=== PATIENT | male | born 1985 | race African-American/Black ===

== ENCOUNTER 2016-11-19 22:32 | Emergency (ER) | payer OTHER ==
[2016-11-19 22:38] VITALS: BP 117/62
--- NOTE | 2016-11-19 22:57 | EDM.PDOC ---
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 the pain I asked him if he had hit a bump and he said yes at this time I examined him patient also states 2 years ago he injured his back and the pain was similar to this Onset: Today Duration: Minutes:, Constant Location: Reports: Back, Lower Extremity, Left Quality: Reports: Throbbing Severity: Moderate Improves with: Reports: Immobilization Worsens with: Reports: Movement Context: Reports: Activity lower back pain Pain Score (Numeric/FACES): 10 - Related Data Allergies Allergy/AdvReac Type Severity Reaction Status Date / Time No Known Allergies Allergy Verified 11/19/16 22:38 Home Meds: Home Meds . [No Known Home Meds] 08/17/15 [History] Past Medical History - Past Health History Medical/Surgical History: Denies Medical/Surgical History - Infectious Disease History Infectious Disease History: Reports: Other (See Below) Other Infectious Disease History: MALARIA Social & Family History - Tobacco Use Smoking Status *Q: Never Smoker Second Hand Smoke Exposure: No - Alcohol Use Days Per Week of Alcohol Use: 0 - Recreational Drug Use Recreational Drug Use: No - Living Situation & Occupation Living situation: Reports: Occupation: Employed ED ROS GENERAL - Review of Systems Review Of Systems: See Below Constitutional: Reports: No Symptoms HEENT: Reports: No Symptoms Respiratory: Reports: No Symptoms Cardiovascular: Reports: No Symptoms Endocrine: Reports: No Symptoms GI/Abdominal: Reports: No Symptoms Musculoskeletal: Reports: Back Pain, Muscle Stiffness Neurological: Reports: Other (Positive for straight leg pain left side positive straight leg test at 30) Psychiatric: Reports: No Symptoms ED EXAM,LOWER BACK PAIN/INJURY - Physical Exam Exam: See Below Exam Limited By: No Limitations General Appearance: Alert, WD/WN, No Apparent Distress Ears: Normal External Exam, Normal Canal, Hearing Grossly Normal, Normal TMs Nose: Normal Inspection, Normal Mucosa, No Blood Throat/Mouth: Normal Inspection, Normal Lips, Normal Teeth, Normal Gums, Normal Oropharynx, Normal Voice, No Airway Compromise Head: Atraumatic, Normocephalic Neck: Normal Inspection, Supple, Non-Tender, Full Range of Motion Respiratory/Chest: No Respiratory Distress, Lungs Clear, Normal Breath Sounds, No Accessory Muscle Use, Chest Non-Tender Cardiovascular: Normal Peripheral Pulses, Regular Rate, Rhythm, No Edema, No Gallop, No JVD, No Murmur, No Rub GI/Abdominal: Normal Bowel Sounds, Soft, Non-Tender, No Organomegaly, No Distention, No Abnormal Bruit, No Mass Back Exam: Muscle Spasm, Paraspinal Tenderness Extremities: Normal Inspection, Normal Range of Motion, Non-Tender, No Pedal Edema, Normal Capillary Refill, Other (Positive straight leg) Neurological: Alert, Straight Leg Raise (L) (Positive at 30) Psychiatric: Normal Affect, Normal Mood Skin Exam: Warm, Dry, Intact, Normal Color, No Rash Course - Vital Signs Last Recorded V/S: Last Vital Signs Temp 97.7 F 11/19/16 22:33 Pulse 76 11/19/16 22:33 Resp 16 11/19/16 22:33 BP 117/62 11/19/16 22:33 Pulse Ox 97 11/19/16 22:33 Departure - Departure Time of Disposition: 23:22 Disposition: Home, Self-Care 01 Condition: Fair Clinical Impression: Low back pain radiating to left lower extremity - Discharge Information Care Plan Goals: Patient will be started on Ultram 50 one every 6 hours for 5 days plus cyclobenzaprine 10 mg 1 tablet 3 times a day for muscle spasms
[2016-11-19] MEDS ORDERED: Ketorolac 60 MG/2 ML SDV IM ONE (23:00)
== END 2016-11-20 | disposition home or self-care (01) ==
LOC: LL.ED 22:32
DX: M54.5 Low back pain (principal)
CPT/HCPCS: 96372; 99283; J1885